=== PATIENT | male | born 1970 | race Caucasian/White ===

== ENCOUNTER 2024-01-09 19:41 | Emergency (ER) | payer BC ==
[~2024-01-09] VITALS: Ht 188 cm; Wt 97.7 kg
[~2024-01-09 19:41] MED LIST: ALTACE10 MG PO; CATAPRES 0.1MG0.1 MG PO; CEPHALEXIN500 M1 PO; MVI
[2024-01-09 19:48] VITALS: BP 171/88; TEMP 98.2
[2024-01-09] MEDS ORDERED: CEPHALEXIN500 M1 PO (21:05)
[2024-01-09] MEDS ORDERED: Cephalexin 500 MG CAP PO ONE (21:15)
[2024-01-09 21:31] VITALS: PULSE 62
== END 2024-01-09 21:30 | disposition home or self-care (01) ==
LOC: COL.ER 19:41
DX: S51.831A Puncture wound without foreign body of right forearm, initial encounter (principal); Z23 Encounter for immunization; W26.8XXA Contact with other sharp object(s), not elsewhere classified, initial encounter